=== PATIENT | male | born 1965 | race Two or more races ===

== ENCOUNTER 2016-05-31 12:39 | Emergency (ER) | payer OTHER, MEDICAID ==
[2016-05-31] MEDS ORDERED: ETOMIDATE 2 MG/ML 10ML VIAL IV ONE (15:16)
[2016-05-31] MEDS ORDERED: SODIUM CHLORIDE 0.9% 500 ML ONE (15:16)
--- NOTE | 2016-05-31 16:11 | RAD ---
WRIST RIGHT 2 VIEWS 05/31/2016 at 15:59 COMPARISON: Right wrist 3 views, 05/31/2016 at 10:27 HISTORY: Reduction and casting of fracture of the distal right radius fracture of the distal right ulna. FINDINGS: Views: PA and crosstable lateral right wrist. Bones: Successful reduction of the comminuted displaced fracture of the distal right radius. No change in the rotated and displaced fracture of the ulnar styloid process. The carpal bones maintain normal alignment with the articular surface of the radius. Joints: Normal. Soft tissues: Normal. IMPRESSION: 1. Successful reduction of the comminuted displaced fracture of the distal right radius. 2. No change in the rotated and displaced fracture of the ulnar styloid process.
[2016-05-31] MEDS ORDERED: HYDROCODONE/ACETAMINOPHEN 5/325MG TABLET ONE (16:17)
== END 2016-05-31 16:57 | disposition home or self-care (01) ==
LOC: ED 12:39
DX: S52.501A Unspecified fracture of the lower end of right radius, initial encounter for closed fracture (principal); W00.0XXA Fall on same level due to ice and snow, initial encounter
CPT/HCPCS: 73100; 99284 ×2; 25605 ×2; 96374; J7040; A9270